=== PATIENT | female | born 1955 | race African-American/Black ===

== ENCOUNTER → 2017-08-25 10:59 | Outpatient (POV) | payer MEDICARE, SELFPAY ==
[2017-08-25 11:14] VITALS: BP 153/73; PULSE 68; RESP 20; O2SAT 98; BMI 31.1
--- NOTE | 2017-08-25 11:30 | [facility]H.PAINSOAP ---
[facility] Pain Management SOAP Note Subjective:: Patient is a pleasant 62-year-old -[place] female who returns to our clinic for evaluation of her thoracic and posthepatic pain. Patient had been scheduled for a T8-T9 thoracic epidural. She was unable to have the injection due to her uncontrolled diabetes. Patient states she has been to her PCP and her's blood sugars are now much more controlled. Patient states her majority of her pain is in her mid back and radiates into her left side. Patient rates her pain an 8 out of 10 today. Patient and I had a discussion about epidurals and potentially neurostimulators. Patient is interested in interventional therapies. ROS General: no recent weight change, no fever, no sleep disturbances Respiratory: no cough, no shortness of air, no recurring pulmonary infections Cardiovascular/Peripheral Vascular: No chest pain, No palpitations, no edema, no shortness of breath. Gastrointestinal: no incontinence, normal bowel movements reported Genitourinary: no incontinence Musculoskeletal: Shoulder pain, back pain, left sided chest wall pain Psychiatric: normal mood/ affect, Neurological: [denies weakness in extremities], [denies balance issues] Objective:: Physical Exam General: Alert and oriented x3, no acute distress, pleasant and cooperative, [on room air] Lungs: Resps E/U, Symmetrical chest expansion, Eyes: PERRL Musculoskeletal: Flexion and extension of thoracic spine somewhat guarded secondary to pain, deep tendon reflexes normal, strength in upper and lower extremities [5/5], normal gait noted Neurological: speech clear, 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 Patient has tried and failed medications, anti-inflammatories, physical therapy. Patient and I also discussed that potentially neurostimulator will help with her postherpetic neuralgia. This note was dictated using voice recognition software and may contain errors or omissions
--- NOTE | 2017-08-25 11:33 | P.CONS_ITS ---
[facility] Pain Management SOAP Note Subjective:: Patient is a pleasant 62-year-old -[place] female who returns to our clinic for evaluation of her thoracic and posthepatic pain. Patient had been scheduled for a T8-T9 thoracic epidural. She was unable to have the injection due to her uncontrolled diabetes. Patient states she has been to her PCP and her's blood sugars are now much more controlled. Patient states her majority of her pain is in her mid back and radiates into her left side. Patient rates her pain an 8 out of 10 today. Patient and I had a discussion about epidurals and potentially neurostimulators. Patient is interested in interventional therapies. ROS General: no recent weight change, no fever, no sleep disturbances Respiratory: no cough, no shortness of air, no recurring pulmonary infections Cardiovascular/Peripheral Vascular: No chest pain, No palpitations, no edema, no shortness of breath. Gastrointestinal: no incontinence, normal bowel movements reported Genitourinary: no incontinence Musculoskeletal: Shoulder pain, back pain, left sided chest wall pain Psychiatric: normal mood/ affect, Neurological: [denies weakness in extremities], [denies balance issues] Objective:: Physical Exam General: Alert and oriented x3, no acute distress, pleasant and cooperative, [ on room air] Lungs: Resps E/U, Symmetrical chest expansion, Eyes: PERRL Musculoskeletal: Flexion and extension of thoracic spine somewhat guarded secondary to pain, deep tendon reflexes normal, strength in upper and lower extremities [5/5], normal gait noted 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 Patient has tried and failed medications, anti-inflammatories, physical therapy. Patient and I also discussed that potentially neurostimulator will help with her postherpetic neuralgia. This note was dictated using voice recognition software and may contain errors or omissions
== END ==
PROVIDERS: Family Provider Family Medicine Geriatric Medicine; PCP Family Medicine Geriatric Medicine; Visit Provider Clinical Nurse Specialist Family Health
DX: M51.34 Other intervertebral disc degeneration, thoracic region (principal)
CPT/HCPCS: 99212